=== PATIENT | male | born 1965 | race Caucasian/White ===

== ENCOUNTER 2017-12-24 09:34 | Emergency (ER) | payer BC ==
[~2017-12-24] VITALS: Ht 157.5 cm; Wt 84.0 kg
[2017-12-24 09:38] VITALS: BP 142/93; PULSE 89; RESP 16; TEMP 98.7; O2SAT 98
[2017-12-24] MEDS ORDERED: CHOLESTEROL MED (09:49)
--- NOTE | 2017-12-24 09:54 | PD ---
HPI Chief Complaint: Cold / Flu Symptoms Time Seen by Provider: 09:46 Travel History International Travel<30 days: No Contact w/Intl Traveler<30days: No Traveled to known affect area: No History of Present Illness HPI 52-year-old male presents emergency department for evaluation of cough, congestion for approximately 3 days. Says that he has had an occasional productive cough but has difficulty bringing up mucus. Denies rhinorrhea but does feel congested. Says he has been slightly short of breath because of the cough. He has not checked his temperature however, he has had subjective fevers. Denies nausea, vomiting, or diarrhea. He has a history of hyperlipidemia but denies any other medical issues. Denies chest pain or leg pain. PFSH Past Medical History High Cholesterol: Yes Tetanus Vaccination: > 5 Years Influenza Vaccination: No Social History Alcohol Use: Yes (SOCIAL) Tobacco Use: No Substance Use: No Allergies-Medications (Allergen,Severity, Reaction): Coded Allergies: No Known Allergies (Unverified , 12/24/17) Reported Meds & Prescriptions Reported Meds & Active Scripts Active Ventolin Hfa 18 GM Inh (Albuterol Sulfate) 90 Mcg/Act Aer 2 Puff INH Q6H PRN Prednisone 5 Mg Tab 5 Mg PO DAILY 7 Days Reported [Cholesterol Med] Review of Systems Except as stated in HPI: all other systems reviewed are Neg Physical Exam Narrative GENERAL: Well-nourished, well-developed patient. SKIN: Focused skin assessment warm/dry. HEAD: Normocephalic. EYES: No scleral icterus. No injection or drainage. NECK: Supple, trachea midline. No JVD or lymphadenopathy. CARDIOVASCULAR: Regular rate and rhythm without murmurs, gallops, or rubs. RESPIRATORY: Breath sounds equal bilaterally. No accessory muscle use. Bilateral lower lobes with rhonchi and scant wheezing. GASTROINTESTINAL: Abdomen soft, non-tender, nondistended. MUSCULOSKELETAL: No cyanosis, or edema. Homans sign negative bilaterally BACK: Nontender without obvious deformity. No CVA tenderness. Data Data Last Documented VS Vital Signs Date Time Temp Pulse Resp B/P (MAP) Pulse Ox O2 Delivery O2 Flow Rate FiO2 12/24/17 09:47 Room Air 12/24/17 09:38 98.7 89 16 142/93 (109) 98 Orders Orders Chest, Pa & Lat (12/24/17 09:51) Albuterol Neb (Albuterol Neb) (12/24/17 10:00) Ed Discharge Order (12/24/17 10:32) [facility] Medical Decision Making Medical Screen Exam Complete: Yes Emergency Medical Condition: Yes Differential Diagnosis Bronchitis, pneumonia, upper respiratory infection Narrative Course 52-year-old male presents emergency department for evaluation of cough, congestion that started approximately 3 days ago. Patient states he is concerned because he usually does not feel this bad and usually his symptoms resolve on their own. Vital signs are stable. Physical exam findings demonstrate a well developed, well nourished male in no acute distress. Patient does sound congested. Lung sounds with bilateral wheezing. Patient will receive albuterol nebulizer in the emergency department today. Chest x-ray ordered. Chest x-ray without acute process. Says that he feels much better after using albuterol. Patient be discharged with albuterol inhaler and prednisone for bronchitis. Advised he should follow-up with his primary care physician this week for further evaluation. Return to the emergency department worsening or persistent symptoms. Diagnosis Primary Impression: Bronchitis Referrals: Primary Care Physician Additional Instructions: Take all medications as prescribed. Use caution with prednisone as it does increase of risk of fractures and can increase her blood sugar. Follow-up with the primary care physician this week for further evaluation and treatment. If her symptoms persist or worsen return to the emergency department. Scripts Albuterol 18 GM Inh (Ventolin Hfa 18 GM Inh) 90 Mcg/Act Aer 2 PUFF INH Q6H Y for SHORTNESS OF BREATH, #1 INHALER 0 Refills Prov: Dru Bruce MD 12/24/17 Prednisone (Prednisone) 5 Mg Tab 5 MG PO DAILY for 7 Days, #7 TAB 0 Refills Prov: Dru Bruce MD 12/24/17 Disposition: 01 DISCHARGE HOME Condition: Stable Lety Bourne Dec 24, 2017 09:53
[2017-12-24] MEDS ORDERED: RESP: ALBUTEROL 2.5 MG/3 ML NEB (SCH) INH ONE (10:00)
--- NOTE | 2017-12-24 10:13 | RADRPT ---
EXAM DATE/TIME: 12/24/2017 09:54 [facility] COMPARISON: No previous studies available for comparison. INDICATIONS : Pt has had a cold/congestion with cough in his chest for a few days. Pt has pain in the middle of his chest. Pt is a former smoker. MEDICAL HISTORY : None. SURGICAL HISTORY : None. ENCOUNTER: Initial ACUITY: 4 - 6 days PAIN SCORE: 5/10 LOCATION: Bilateral chest FINDINGS: PA and lateral views of the chest demonstrate the lungs to be symmetrically aerated without evidence of mass, infiltrate or effusion. The cardiomediastinal contours are unremarkable. Lower cervical pl ate and screw fixation. Osseous structures are intact. CONCLUSION: 1. No acute cardiopulmonary disease. Sourav Em MD on December 24, 2017 at 10:09 Board Certified Radiologist. This report was verified electronically.
[2017-12-24] MEDS ORDERED: PRED5TAB PO (10:32)
[2017-12-24] MEDS ORDERED: VENTAER INH (10:32)
== END 2017-12-24 10:45 | disposition home or self-care (01) ==
LOC: PHEFT 09:34
DX: J40 Bronchitis, not specified as acute or chronic (principal); E78.00 Pure hypercholesterolemia, unspecified
CPT/HCPCS: 71046; 94664; 99283; J7613